=== PATIENT | female | born 1990 | race Caucasian/White ===

== ENCOUNTER → 2019-07-07 11:45 | Outpatient (BNVA) | payer BC, SELFPAY | PROVIDERS: Family Provider Family Medicine; Visit Provider Obstetrics & Gynecology | DX: N93.9 Abnormal uterine and vaginal bleeding, unspecified (principal) | CPT/HCPCS: 84443 ==

== ENCOUNTER → 2019-07-26 13:34 | Outpatient (BNVA) | payer BC, SELFPAY | PROVIDERS: Family Provider Family Medicine; Visit Provider Obstetrics & Gynecology | DX: Z01.89 Encounter for other specified special examinations (principal) ==

== ENCOUNTER → 2019-07-26 13:37 | Outpatient (BNVA) | payer BC, SELFPAY | PROVIDERS: Family Provider Family Medicine; Referring Provider Obstetrics & Gynecology; Visit Provider Obstetrics & Gynecology | DX: N93.9 Abnormal uterine and vaginal bleeding, unspecified (principal); N83.8 Other noninflammatory disorders of ovary, fallopian tube and broad ligament | CPT/HCPCS: 76830 ==

== ENCOUNTER → 2020-11-07 13:47 | Outpatient (BNVA) | payer OTHER, SELFPAY | PROVIDERS: Family Provider Family Medicine; PCP Family Medicine; Visit Provider Obstetrics & Gynecology | DX: Z12.4 Encounter for screening for malignant neoplasm of cervix (principal) | CPT/HCPCS: 88175 ==

== ENCOUNTER → 2022-01-01 14:45 | Outpatient (BNVA) | payer OTHER, SELFPAY | PROVIDERS: Family Provider Family Medicine; PCP Family Medicine; Visit Provider Obstetrics & Gynecology | DX: Z01.419 Encounter for gynecological examination (general) (routine) without abnormal findings (principal) | CPT/HCPCS: 87624 ==

== ENCOUNTER 2022-01-20 07:43 | Outpatient (CLI) | payer OTHER, SELFPAY ==
--- NOTE | 2022-01-20 07:53 | US_ITS ---
WS: [id number] ULTRASOUND LEFT BREAST HISTORY: N63.20 - Unspecified lump in the left breast, unspecified... COMPARISON: None available. TECHNIQUE: 2-D and Doppler. Ultrasound directed to the subareolar region at the site of the palpable abnormality. By ultrasound n o abnormality is identified. There are a few mildly prominent ducts. There is no mass or increased va scularity. No nipple retraction. Breast implant is noted. US/US breast LT limited* [id number] IMPRESSION: BI-RADS: 2-Benign FOLLOW-UP: See Report LACK OF RADIOGRAPHIC EVIDENCE OF MALIGNANCY SHOULD NOT DELAY BIOPSY IF A CLINIC ALLY SUSPICIOUS MASS IS PRESENT.
== END 2022-01-20 07:44 | disposition home or self-care (01) ==
LOC: RAD 07:44
PROVIDERS: Family Provider Family Medicine; PCP Family Medicine; Visit Provider Obstetrics & Gynecology
DX: N63.20 Unspecified lump in the left breast, unspecified quadrant (principal)
CPT/HCPCS: 76642

== ENCOUNTER → 2023-01-11 16:40 | Outpatient (BNVA) | payer OTHER, SELFPAY | PROVIDERS: Family Provider Family Medicine; PCP Family Medicine; Visit Provider Obstetrics & Gynecology | DX: Z01.419 Encounter for gynecological examination (general) (routine) without abnormal findings (principal) | CPT/HCPCS: 87624 ==

== ENCOUNTER → 2024-01-17 15:55 | Outpatient (BNVA) | payer OTHER, SELFPAY | PROVIDERS: Family Provider Family Medicine; PCP Family Medicine; Visit Provider Nurse Practitioner Women's Health | DX: Z01.419 Encounter for gynecological examination (general) (routine) without abnormal findings (principal) | CPT/HCPCS: 87624 ==

== ENCOUNTER 2024-04-18 14:27 | Outpatient (CLI) | payer OTHER, SELFPAY ==
--- NOTE | 2024-04-18 14:37 | MM_ITS ---
WS: [id number] BILATERAL DIAGNOSTIC DIGITAL BREAST MAMMOGRAPHY WITH XI DISPLACEMENT VIEWS. CAD PERFORMED. LEFT breast ultrasound, limited HISTORY: BILATERAL BREAST PAIN/MASTODYNIA COMPARISON: LEFT breast ultrasound 01/20/2022 Bilateral craniocaudal and mediolateral oblique views are performed with tomosynthesis and SM. Xi displacement views in CC and MLO projection also performed. Breasts composition: The breasts are extremely dense, which lowers the sensitivity of mammography. I mplants are intact. No capsular contraction or collapse. Implants are intact. Palpable marker upper outer quadrant of the LEFT breast. There is no underlying mass identified. There is no distortion. Very dense fibroglandular breast tissue with scattered calci fications. LEFT breast ultrasound, limited. LEFT breast ultrasound is directed to the area of pain at 2:00. Heterogeneous echotexture upper outer quadrant. No mass or mass effect. There is no shadowing. MM/MM diag BI tomosynthesis [id number] IMPRESSION: BI-RADS: 2 - Benign FOLLOW-UP: Age 40 No abnormality in the LEFT breast at the area of pain.
--- NOTE | 2024-04-18 15:34 | US_ITS ---
WS: [id number] BILATERAL DIAGNOSTIC DIGITAL BREAST MAMMOGRAPHY WITH XI DISPLACEMENT VIEWS. CAD PERFORMED. LEFT breast ultrasound, limited HISTORY: BILATERAL BREAST PAIN/MASTODYNIA COMPARISON: LEFT breast ultrasound 01/20/2022 Bilateral craniocaudal and mediolateral oblique views are performed with tomosynthesis and SM. Xi displacement views in CC and MLO projection also performed. Breasts composition: The breasts are extremely dense, which lowers the sensitivity of mammography. I mplants are intact. No capsular contraction or collapse. Implants are intact. Palpable marker upper outer quadrant of the LEFT breast. There is no underlying mass identified. There is no distortion. Very dense fibroglandular breast tissue with scattered calci fications. LEFT breast ultrasound, limited. LEFT breast ultrasound is directed to the area of pain at 2:00. Heterogeneous echotexture upper outer quadrant. No mass or mass effect. There is no shadowing. US/US breast LT limited* [id number] IMPRESSION: BI-RADS: 2 - Benign FOLLOW-UP: Age 40 No abnormality in the LEFT breast at the area of pain.
== END 2024-04-18 14:28 | disposition home or self-care (01) ==
LOC: RAD 14:29
PROVIDERS: Family Provider Family Medicine; PCP Family Medicine; Visit Provider Nurse Practitioner Women's Health
DX: N64.4 Mastodynia (principal); R92.333 Mammographic heterogeneous density, bilateral breasts
CPT/HCPCS: 76642; 77062; G0279

== ENCOUNTER → 2025-04-17 10:16 | Outpatient (BNVA) | payer OTHER, SELFPAY | PROVIDERS: PCP Family Medicine; Visit Provider Family Medicine | DX: Z13.6 Encounter for screening for cardiovascular disorders (principal) | CPT/HCPCS: 80053; 80061; 84443; 85025 ==